=== PATIENT | female | born 1980 | race African-American/Black ===

== ENCOUNTER 2017-05-27 13:52 | Observation (INO) | payer MEDICAID ==
[~2017-05-27] VITALS: Ht 152.4 cm; Wt 116.1 kg
[2017-05-27] MEDS ORDERED: PREN1TAB78 PO (14:29)
[2017-05-27] MEDS ORDERED: FOLI-43 PO (14:29)
[2017-05-27] MEDS ORDERED: OCD MT (14:29)
[2017-05-27] MEDS ORDERED: CHOL100022 PO (14:29)
== END 2017-05-27 15:00 | disposition home or self-care (01) ==
LOC: L&D 13:52
PROVIDERS: ADMIT Obstetrics & Gynecology; ATTEND Obstetrics & Gynecology
DX: O26.893 Other specified pregnancy related conditions, third trimester (principal); R10.30 Lower abdominal pain, unspecified; Z3A.31 31 weeks gestation of pregnancy
CPT/HCPCS: 99281; G0378

== ENCOUNTER 2017-07-29 04:58 | Observation (INO) | payer MEDICAID ==
[~2017-07-29] VITALS: Ht 157.5 cm; Wt 118.4 kg
[~2017-07-29 04:58] MED LIST: CHOL100022 PO; FOLI-43 PO; OCD MT; PREN1TAB78 PO
[2017-07-29] MEDS ORDERED: PNV1TABL76 MT (05:38)
== END 2017-07-29 06:01 | disposition home or self-care (01) ==
LOC: L&D 04:58
PROVIDERS: ADMIT Obstetrics & Gynecology; ATTEND Obstetrics & Gynecology
DX: O62.9 Abnormality of forces of labor, unspecified (principal); Z3A.40 40 weeks gestation of pregnancy
CPT/HCPCS: G0378 ×2